=== PATIENT | male | born 1960 | race Caucasian/White ===

== ENCOUNTER 2016-11-07 09:49 | Emergency (ER) | payer MEDICAID, OTHER ==
[~2016-11-07] VITALS: Wt 89.0 kg
[2016-11-07] MEDS ORDERED: KETOROLAC 30 MG INJ IM STA (10:27)
[2016-11-07] MEDS ORDERED: DEXAMETHASONE 10 MG/ML 1 ML INJ IM ONE (10:30)
[2016-11-07] MEDS ORDERED: CYCL-319 PO (10:38)
[2016-11-07] MEDS ORDERED: IBUP-1542 PO (10:38)
--- NOTE | 2016-11-07 11:16 | ERD ---
ER Documentation Chief Complaint Date/Time DATE: 11/07/16 TIME: 11:13 Chief Complaint R LEG PAIN X 3 DAYS HPI This patient is a 55-year-old male with no significant medical history presenting to the emergency department for sciatica on the left side which began a proximally 3 days ago. 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 The patient is taken Tylenol with mild relief of symptoms. The patient has never had this problem in the past. The patient denies loss of bowels or bladder function, dizziness, syncope, fevers, chills, loss of function of the lower extremities, or other symptoms at this time. ROS All systems reviewed and are negative except as per history of present illness. Medications Home Meds Active Scripts Ibuprofen* (Motrin*) 600 Mg Tab, 600 MG PO Q6, #30 TAB Prov:MARIE MAGAÑA PA-C 11/07/16 Cyclobenzaprine Hcl* (Cyclobenzaprine Hcl*) 10 Mg Tablet, 10 MG PO TID, #15 TAB Prov:MARIE MAGAÑA PA-C 11/07/16 Allergies Allergies: Coded Allergies: No Known Allergy (Unverified , 11/07/16) FmHx Noncontributory for chief complaint Physical Exam Vitals Vital Signs Date Time Temp Pulse Resp B/P Pulse Ox O2 Delivery O2 Flow Rate FiO2 11/07/16 09:53 98.1 71 18 197/95 99 Physical Exam Const: The patient appears to be in acute pain but no significant distress. Head: Atraumatic Eyes: Normal Conjunctiva ENT: Normal External Ears, Nose and Mouth. Neck: Full range of motion..~ No meningismus. Resp: Clear to auscultation bilaterally Cardio: Regular rate and rhythm, no murmurs Abd: Soft, non tender, non distended. Normal bowel sounds Skin: No petechiae or rashes Back: There is mild tenderness palpation of the paraspinal muscles of the lumbar spine on the left side. There is positive straight leg raise on the left lower extremity. Negative straight leg raise on the right. Ext: No cyanosis, or edema Neur: Awake and alert Psych: Normal Mood and Affect Results 24 hrs Current Medications Medications (Trade) Dose Ordered Sig/Gretchen Route PRN Reason Start Time Stop Time Status Last Admin Dose Admin Ketorolac Tromethamine (Toradol) 30 mg ONCE STAT IM 11/07/16 10:27 11/07/16 10:28 DC 11/07/16 10:55 Dexamethasone (Decadron) 10 mg ONCE ONCE IM 11/07/16 10:30 11/07/16 10:31 DC 11/07/16 10:55 Procedures/MDM 55-year-old male presents secondary to complaints of left-sided sciatica pain. Patient had injury approximately 3 days ago and the pain started shortly after. On physical examination the patient's blood pressure slightly elevated which I believe is secondary to pain. Patient's blood pressure was elevated (>120/80 ) but appears stable without evidence of hypertension emergency or urgency. The patient was counseled about the risks of hypertension and urged to pursue outpatient monitoring and therapy within a week with their primary care physician. The patient was given IM Toradol and IM Decadron in the department and is feeling improved on repeat evaluation. The patient is stable for outpatient management with a prescription for Flexeril and ibuprofen. I have low suspicion for epidural abscess, cauda equina , spondylolisthesis, vertebral body fracture, or other emergent conditions. The patient agrees with the discharge plan and diagnosis. Strict ER return precautions discussed and the patient is to follow-up with her primary care physician within the next 1-3 days. Departure Diagnosis: Primary Impression: Sciatica of left side Additional Impression: Pain of left leg Condition: Fair Patient Instructions: Understanding Sciatica, Back Pain W/ Sciatica [facility] Usted se florez hecho un examen mdico de control que le indica que no est en héctor condicin que requiera tratamiento urgente en el Departamento de Emergencia. Un estudio ms profundo y el tratamiento de gipson condicin pueden esperar sin ningn riesgo hasta que usted sea atendida/o en el consultorio de gipson mdico o héctor cl louisa. Es responsabilidad suya arreglar héctor rohith para el seguimiento del layla. MANEJO DE CONDICIONES NO URGENTES EN EL FUTURO 1) Si usted tiene un mdico de atencin primaria: Usted debera llamar a gipson mdico de atencin primaria antes de venir al departamento de emergencia. Despus de las horas de consultorio, gipson doctor o gipson asociado/a est disponible por telfono. El mdico o enfermero de shahrzad en el servicio telefnico puede asesorarle por krys medio para atender el problema, o layla contrario se puede programar héctor rohith. 2) Si usted no tiene un mdico de atencin primaria: Llame al mdico o clnica de referencia que aparece abajo liana las horas de consultorio para hacer héctor rohith para que le vean. CLINICAS: [facility] [id number] [facility] [phone] [facility] [phone] [facility] [phone] [place] [id number] [phone] [facility] [phone] [address] Additional Instructions: Follow up with your PCP within the next 1-3 days for a more thorough evaluation and a possible referral to a specialist. Return the the emergency department immediately if symptoms worsen or change. If you have any questions regarding medications, ask your pharmacist or us before you leave. If any adverse reactions, occur while taking your medications, discontinue the treatment and return to the emergency department immediately. If any new or worsening symptoms, uncontrolled fevers, or other unexplained symptoms occur, return to the emergency department immediately. Take your medications as directed, and complete the entire course of treatment. Never operate machinery or drive after taking muscle relaxers. MARIE MAGAÑA PA-C Nov 07, 2016 11:16
== END 2016-11-07 11:15 | disposition home or self-care (01) ==
LOC: FTE 09:49
DX: M54.32 Sciatica, left side (principal)
CPT/HCPCS: J1100; J1885; 96372

== ENCOUNTER 2017-07-31 06:40 | Day surgery (SDC) | END 2017-07-31 15:06 | disposition home or self-care (01) ==

== ENCOUNTER 2017-09-28 09:16 | Emergency (ER) | END 2017-09-28 10:45 | disposition home or self-care (01) ==